=== PATIENT | male | born 1950 | race Caucasian/White ===

== ENCOUNTER 2020-11-21 12:51 | Inpatient (IN) ==
[2020-11-21] MEDS ORDERED: Furosemide 40 MG/4 ML VIAL IVP ONE (13:12)
[2020-11-21 13:37] LABS: Basophils % 0.3 %; Eosinophils # 0.1 K/mcL (0.0-0.6); Eosinophils % 1.2 %; Hematocrit 31.7 % (37.5-50.1); Hemoglobin 9.9 g/dL (12.9-16.9); Immature Granulocytes % 0.4 % (0-4); Mean Corpuscular HGB Conc 31.2 g/dL (31.6-35.5); Mean Corpuscular Hemoglobin 29.5 pg (28.0-33.3); Mean Corpuscular Volume 94.3 fL (83.0-100.0); Monocytes # 0.6 K/mcL (0.0-1.3); Monocytes % 6.6 %; Neutrophils # 7.8 K/mcL (1.6-8.9); Platelet Count 162 K/mcL (140-400); Red Blood Count 3.36 M/mcL (4.19-5.50); Red Cell Distribution Width 17.9 % (11.5-14.5); Segmented Neutrophils % 81.5 %; White Blood Count 9.5 K/mcL (4.3-11.1)
[2020-11-21 13:42] LABS: INR 1.3; Prothrombin Time 14.9 Seconds (9.4-12.1)
[2020-11-21 13:45] LABS: Activated Partial Thrombo Time 31.3 Seconds (26.0-36.0)
[2020-11-21 13:55] LABS: Alanine Aminotransferase 14 Units/L (7-52); Albumin 3.7 g/dL (3.5-5.7); Albumin/Globulin Ratio 1.4 (1.1-2.2); Alkaline Phosphatase 59 Units/L (34-104); Aspartate Amino Transferase 25 Units/L (13-39); BUN/Creatinine Ratio 23 (6-26); Bilirubin,Direct 0.1 mg/dL (0.0-0.2); Bilirubin,Indirect 0.4 mg/dL (0.0-1.0); Bilirubin,Total 0.5 mg/dL (0.3-1.0); Blood Urea Nitrogen 26 mg/dL (8-23); Calcium 8.7 mg/dL (8.6-10.3); Carbon Dioxide 23 mEq/L (23-29); Chloride 101 mEq/L (98-107); Globulin 2.6 g/dL (2.4-3.5); Glucose 165 mg/dL (70-105); Osmolality,Calculated 290 (280-300); Potassium 4.6 mEq/L (3.5-5.1); Sodium 136 mEq/L (136-145); Total Protein 6.3 g/dL (6.4-8.9); eGFR For African Americans > 60 (> 60); eGFR For Non-African Americans > 60 (> 60)
[2020-11-21] MEDS ORDERED: Clindamycin 600 MG/50 ML 600 MG/50 ML IV.SOLN IVPB STA (15:07)
[2020-11-21] MEDS ORDERED: Naloxone 0.4 MG/ML INJ IVP PRN (15:22)
[2020-11-21] MEDS ORDERED: Ondansetron 4 MG/2 ML VIAL IVP PRN (15:22)
[2020-11-21] MEDS ORDERED: D5% in Water 1,000 ML IVC PRN (15:22)
[2020-11-21] MEDS ORDERED: Dextrose Gel 15 GM/37.5 ML TUBE PO PRN ×2 (15:22)
[2020-11-21] MEDS ORDERED: Acetaminophen 325 MG TABLET PO PRN (15:22)
[2020-11-21] MEDS ORDERED: *HR* Dextrose 50 % in Water (Vial) 50 ML VIAL IVP PRN (15:22)
[2020-11-21] MEDS: Insulin LISPRO 300 UNITS/3 ML VIAL SUBQ SCH ×2 (16:40→20:53)
[2020-11-21] MEDS: ELTROMBOPAG OLAMINE 50 MG PO SCH (20:01)
[2020-11-21] MEDS: Gabapentin 300 MG CAPSULE PO SCH (20:49)
[2020-11-21] MEDS: valACYclovir 500 MG TABLET PO SCH (20:49)
[2020-11-21] MEDS: Furosemide 40 MG/4 ML VIAL IVP SCH (20:53)
[2020-11-21] MEDS: *HR* HYDROcodone/Acet 5/325 mg TABLET PO PRN (20:55)
[2020-11-21] MEDS: Melatonin 3 MG TABLET PO PRN (23:40)
[2020-11-21] MEDS: Capsaicin 0.025% 60 GM TUBE TP PRN (23:42)
[2020-11-21] MEDS: Clindamycin 600 MG/50 ML 600 MG/50 ML IV.SOLN IVPB SCH (23:46)
[2020-11-22] MEDS: *HR* HYDROcodone/Acet 5/325 mg TABLET PO PRN ×2 (04:10→10:17)
[2020-11-22 07:15] LABS: Hematocrit 31.3 % (37.5-50.1); Hemoglobin 9.6 g/dL (12.9-16.9); Mean Corpuscular HGB Conc 30.7 g/dL (31.6-35.5); Mean Corpuscular Hemoglobin 29.3 pg (28.0-33.3); Mean Corpuscular Volume 95.4 fL (83.0-100.0); Mean Platelet Volume 10.3 fL (9.4-12.4); Platelet Count 149 K/mcL (140-400); Red Blood Count 3.28 M/mcL (4.19-5.50); Red Cell Distribution Width 17.9 % (11.5-14.5); White Blood Count 7.9 K/mcL (4.3-11.1)
[2020-11-22 07:49] LABS: BUN/Creatinine Ratio 20 (6-26); Blood Urea Nitrogen 28 mg/dL (8-23); Calcium 8.6 mg/dL (8.6-10.3); Carbon Dioxide 29 mEq/L (23-29); Chloride 101 mEq/L (98-107); Glucose 142 mg/dL (70-105); Magnesium 1.6 mg/dL (1.6-2.6); Osmolality,Calculated 296 (280-300); Potassium 3.7 mEq/L (3.5-5.1); Sodium 139 mEq/L (136-145); eGFR For African Americans > 60 (> 60); eGFR For Non-African Americans 50 (> 60)
[2020-11-22] MEDS: Insulin LISPRO 300 UNITS/3 ML VIAL SUBQ SCH ×4 (08:06→20:23)
[2020-11-22] MEDS: Metoprolol XL (24 HR) Succ 25 MG TAB.ER.24H PO SCH (10:16)
[2020-11-22] MEDS: valACYclovir 500 MG TABLET PO SCH ×2 (10:16→20:37)
[2020-11-22] MEDS: Furosemide 40 MG/4 ML VIAL IVP SCH (10:17)
[2020-11-22] MEDS: Aspirin Enteric Coated 81 MG Tablet PO SCH (10:17)
[2020-11-22] MEDS: Spironolactone 25 MG TABLET PO SCH (10:17)
[2020-11-22] MEDS: Lactobacillus 1 EACH CAP.SPRINK PO SCH (10:17)
[2020-11-22] MEDS: Clindamycin 600 MG/50 ML 600 MG/50 ML IV.SOLN IVPB SCH ×3 (10:17→23:06)
[2020-11-22] MEDS: allopurinoL 300 MG TABLET PO SCH (10:17)
[2020-11-22] MEDS: VENETOCLAX 100 MG PO SCH (10:18)
[2020-11-22] MEDS: *HR* OxyCODONE Immed Rel 5 MG TABLET PO PRN (12:44)
[2020-11-22] MEDS: Furosemide 20 MG TABLET PO SCH (17:16)
[2020-11-22] MEDS: ELTROMBOPAG OLAMINE 50 MG PO SCH (17:20)
[2020-11-22] MEDS: Gabapentin 300 MG CAPSULE PO SCH (20:37)
[2020-11-22] MEDS: Capsaicin 0.025% 60 GM TUBE TP PRN (20:38)
[2020-11-22] MEDS: Melatonin 3 MG TABLET PO PRN (20:51)
[2020-11-23] MEDS: *HR* Enoxaparin 40 MG/0.4 ML SYRINGE SQ SCH (05:35)
[2020-11-23 07:09] LABS: Basophils % 0.2 %; Eosinophils # 0.1 K/mcL (0.0-0.6); Eosinophils % 1.3 %; Hematocrit 30.7 % (37.5-50.1); Hemoglobin 9.6 g/dL (12.9-16.9); Immature Granulocytes % 0.4 % (0-4); Lymphocytes # 0.9 K/mcL (0.6-4.6); Lymphocytes % 10.2 %; Mean Corpuscular HGB Conc 31.3 g/dL (31.6-35.5); Mean Corpuscular Hemoglobin 29.2 pg (28.0-33.3); Mean Corpuscular Volume 93.3 fL (83.0-100.0); Mean Platelet Volume 10.2 fL (9.4-12.4); Monocytes # 0.6 K/mcL (0.0-1.3); Monocytes % 6.8 %; Neutrophils # 7.2 K/mcL (1.6-8.9); Platelet Count 147 K/mcL (140-400); Red Blood Count 3.29 M/mcL (4.19-5.50); Red Cell Distribution Width 17.6 % (11.5-14.5); Segmented Neutrophils % 81.1 %; White Blood Count 8.9 K/mcL (4.3-11.1)
[2020-11-23 07:24] LABS: BUN/Creatinine Ratio 22 (6-26); Blood Urea Nitrogen 28 mg/dL (8-23); Calcium 8.6 mg/dL (8.6-10.3); Carbon Dioxide 28 mEq/L (23-29); Chloride 99 mEq/L (98-107); Glucose 151 mg/dL (70-105); Osmolality,Calculated 290 (280-300); Potassium 3.2 mEq/L (3.5-5.1); Sodium 136 mEq/L (136-145); eGFR For African Americans > 60 (> 60); eGFR For Non-African Americans 56 (> 60)
[2020-11-23] MEDS: valACYclovir 500 MG TABLET PO SCH ×2 (07:44→20:24)
[2020-11-23] MEDS: Aspirin Enteric Coated 81 MG Tablet PO SCH (07:44)
[2020-11-23] MEDS: allopurinoL 300 MG TABLET PO SCH (07:44)
[2020-11-23] MEDS: Clindamycin 600 MG/50 ML 600 MG/50 ML IV.SOLN IVPB SCH ×2 (07:44→16:06)
[2020-11-23] MEDS: Lactobacillus 1 EACH CAP.SPRINK PO SCH (07:45)
[2020-11-23] MEDS: Metoprolol XL (24 HR) Succ 25 MG TAB.ER.24H PO SCH (07:45)
[2020-11-23] MEDS: Spironolactone 25 MG TABLET PO SCH (07:45)
[2020-11-23] MEDS: Furosemide 20 MG TABLET PO SCH ×2 (07:45→16:08)
[2020-11-23] MEDS: Insulin LISPRO 300 UNITS/3 ML VIAL SUBQ SCH ×4 (07:47→20:25)
[2020-11-23] MEDS: VENETOCLAX 100 MG PO SCH (07:55)
[2020-11-23] MEDS: *HR* OxyCODONE Immed Rel 5 MG TABLET PO PRN ×2 (13:41→20:23)
[2020-11-23] MEDS: Capsaicin 0.025% 60 GM TUBE TP PRN (13:41)
[2020-11-23] MEDS: ELTROMBOPAG OLAMINE 50 MG PO SCH (16:56)
[2020-11-23] MEDS: Melatonin 3 MG TABLET PO PRN (20:23)
[2020-11-23] MEDS: Gabapentin 300 MG CAPSULE PO SCH (20:23)
[2020-11-23] MEDS: Nystatin POWDER 30 GM BOTTLE TP SCH (20:24)
[2020-11-24] MEDS: Clindamycin 600 MG/50 ML 600 MG/50 ML IV.SOLN IVPB SCH ×3 (01:25→17:05)
[2020-11-24] MEDS: *HR* Enoxaparin 40 MG/0.4 ML SYRINGE SQ SCH (06:28)
[2020-11-24 09:25] LABS: Basophils % 0.3 %; Eosinophils # 0.1 K/mcL (0.0-0.6); Eosinophils % 1.3 %; Hematocrit 30.5 % (37.5-50.1); Hemoglobin 9.6 g/dL (12.9-16.9); Immature Granulocytes % 0.5 % (0-4); Lymphocytes # 0.8 K/mcL (0.6-4.6); Mean Corpuscular HGB Conc 31.5 g/dL (31.6-35.5); Mean Corpuscular Hemoglobin 29.6 pg (28.0-33.3); Mean Corpuscular Volume 94.1 fL (83.0-100.0); Monocytes # 0.6 K/mcL (0.0-1.3); Monocytes % 6.6 %; Neutrophils # 7.1 K/mcL (1.6-8.9); Platelet Count 149 K/mcL (140-400); Red Blood Count 3.24 M/mcL (4.19-5.50); Red Cell Distribution Width 17.7 % (11.5-14.5); Segmented Neutrophils % 82.3 %; White Blood Count 8.6 K/mcL (4.3-11.1)
[2020-11-24 09:45] LABS: BUN/Creatinine Ratio 21 (6-26); Blood Urea Nitrogen 23 mg/dL (8-23); Calcium 8.3 mg/dL (8.6-10.3); Carbon Dioxide 26 mEq/L (23-29); Chloride 99 mEq/L (98-107); Glucose 140 mg/dL (70-105); Osmolality,Calculated 286 (280-300); Potassium 3.5 mEq/L (3.5-5.1); Sodium 135 mEq/L (136-145); eGFR For African Americans > 60 (> 60); eGFR For Non-African Americans > 60 (> 60)
[2020-11-24] MEDS: Insulin LISPRO 300 UNITS/3 ML VIAL SUBQ SCH ×4 (09:57→22:05)
[2020-11-24] MEDS: Capsaicin 0.025% 60 GM TUBE TP PRN ×2 (09:58→22:06)
[2020-11-24] MEDS: valACYclovir 500 MG TABLET PO SCH ×2 (09:59→22:04)
[2020-11-24] MEDS: Lactobacillus 1 EACH CAP.SPRINK PO SCH (09:59)
[2020-11-24] MEDS: Furosemide 20 MG TABLET PO SCH (09:59)
[2020-11-24] MEDS: allopurinoL 300 MG TABLET PO SCH (09:59)
[2020-11-24] MEDS: Aspirin Enteric Coated 81 MG Tablet PO SCH (09:59)
[2020-11-24] MEDS: Metoprolol XL (24 HR) Succ 25 MG TAB.ER.24H PO SCH (09:59)
[2020-11-24] MEDS: Nystatin POWDER 30 GM BOTTLE TP SCH ×3 (10:00→22:05)
[2020-11-24] MEDS: Spironolactone 25 MG TABLET PO SCH (10:00)
[2020-11-24] MEDS: VENETOCLAX 100 MG PO SCH (10:00)
[2020-11-24] MEDS: ELTROMBOPAG OLAMINE 50 MG PO SCH (10:01)
[2020-11-24] MEDS: *HR* OxyCODONE Immed Rel 5 MG TABLET PO PRN ×2 (10:14→18:22)
[2020-11-24] MEDS: Furosemide 40 MG/4 ML VIAL IVP SCH ×2 (17:04→22:04)
[2020-11-24] MEDS: Gabapentin 300 MG CAPSULE PO SCH (22:04)
[2020-11-24] MEDS: Melatonin 3 MG TABLET PO PRN (22:04)
[2020-11-25] MEDS: Clindamycin 600 MG/50 ML 600 MG/50 ML IV.SOLN IVPB SCH ×3 (00:13→15:13)
[2020-11-25] MEDS: *HR* Enoxaparin 40 MG/0.4 ML SYRINGE SQ SCH (06:37)
[2020-11-25] MEDS: *HR* OxyCODONE Immed Rel 5 MG TABLET PO PRN ×3 (06:37→22:50)
[2020-11-25 08:51] LABS: Basophils % 0.2 %; Eosinophils # 0.1 K/mcL (0.0-0.6); Eosinophils % 1.3 %; Hematocrit 31.3 % (37.5-50.1); Hemoglobin 9.7 g/dL (12.9-16.9); Immature Granulocytes % 0.6 % (0-4); Lymphocytes # 0.9 K/mcL (0.6-4.6); Lymphocytes % 10.9 %; Mean Corpuscular Hemoglobin 29.3 pg (28.0-33.3); Mean Corpuscular Volume 94.6 fL (83.0-100.0); Mean Platelet Volume 10.5 fL (9.4-12.4); Monocytes # 0.6 K/mcL (0.0-1.3); Monocytes % 6.8 %; Neutrophils # 6.6 K/mcL (1.6-8.9); Platelet Count 149 K/mcL (140-400); Red Blood Count 3.31 M/mcL (4.19-5.50); Red Cell Distribution Width 17.5 % (11.5-14.5); Segmented Neutrophils % 80.2 %; White Blood Count 8.2 K/mcL (4.3-11.1)
[2020-11-25 09:18] LABS: BUN/Creatinine Ratio 20 (6-26); Blood Urea Nitrogen 23 mg/dL (8-23); Calcium 8.3 mg/dL (8.6-10.3); Carbon Dioxide 28 mEq/L (23-29); Chloride 99 mEq/L (98-107); Glucose 141 mg/dL (70-105); Osmolality,Calculated 290 (280-300); Potassium 3.5 mEq/L (3.5-5.1); Sodium 137 mEq/L (136-145); eGFR For African Americans > 60 (> 60); eGFR For Non-African Americans > 60 (> 60)
[2020-11-25] MEDS: Insulin LISPRO 300 UNITS/3 ML VIAL SUBQ SCH ×4 (10:00→21:26)
[2020-11-25] MEDS: allopurinoL 300 MG TABLET PO SCH (10:00)
[2020-11-25] MEDS: Spironolactone 25 MG TABLET PO SCH (10:02)
[2020-11-25] MEDS: valACYclovir 500 MG TABLET PO SCH ×2 (10:02→21:27)
[2020-11-25] MEDS: Metoprolol XL (24 HR) Succ 25 MG TAB.ER.24H PO SCH (10:03)
[2020-11-25] MEDS: Aspirin Enteric Coated 81 MG Tablet PO SCH (10:03)
[2020-11-25] MEDS: Lactobacillus 1 EACH CAP.SPRINK PO SCH (10:04)
[2020-11-25] MEDS: Furosemide 40 MG/4 ML VIAL IVP SCH ×3 (10:05→21:28)
[2020-11-25] MEDS: Nystatin POWDER 30 GM BOTTLE TP SCH ×3 (10:06→21:28)
[2020-11-25] MEDS: VENETOCLAX 100 MG PO SCH (12:44)
[2020-11-25] MEDS: ELTROMBOPAG OLAMINE 50 MG PO SCH (16:47)
[2020-11-25] MEDS: Melatonin 3 MG TABLET PO PRN (21:27)
[2020-11-25] MEDS: Gabapentin 300 MG CAPSULE PO SCH (21:27)
[2020-11-25] MEDS: Furosemide 40 MG TABLET PO SCH (22:50)
[2020-11-26 04:20] VITALS: RESP 20
[2020-11-26] MEDS: *HR* Enoxaparin 40 MG/0.4 ML SYRINGE SQ SCH (06:27)
[2020-11-26] MEDS: *HR* OxyCODONE Immed Rel 5 MG TABLET PO PRN (06:35)
[2020-11-26 06:40] LABS: Basophils % 0.5 %; Eosinophils # 0.1 K/mcL (0.0-0.6); Eosinophils % 1.8 %; Hematocrit 32.8 % (37.5-50.1); Hemoglobin 9.6 g/dL (12.9-16.9); Immature Granulocytes % 0.7 % (0-4); Lymphocytes # 0.8 K/mcL (0.6-4.6); Lymphocytes % 11.4 %; Mean Corpuscular HGB Conc 29.3 g/dL (31.6-35.5); Mean Corpuscular Hemoglobin 29.8 pg (28.0-33.3); Mean Corpuscular Volume 101.9 fL (83.0-100.0); Mean Platelet Volume 11.1 fL (9.4-12.4); Monocytes # 0.5 K/mcL (0.0-1.3); Monocytes % 7.4 %; Neutrophils # 5.7 K/mcL (1.6-8.9); Platelet Count 141 K/mcL (140-400); Red Blood Count 3.22 M/mcL (4.19-5.50); Red Cell Distribution Width 17.9 % (11.5-14.5); Segmented Neutrophils % 78.2 %; White Blood Count 7.3 K/mcL (4.3-11.1)
[2020-11-26 06:50] VITALS: BP 112/69; PULSE 86; TEMP 98.5; O2SAT 96
[2020-11-26 07:30] LABS: BUN/Creatinine Ratio 19 (6-26); Blood Urea Nitrogen 24 mg/dL (8-23); Calcium 8.2 mg/dL (8.6-10.3); Carbon Dioxide 23 mEq/L (23-29); Chloride 100 mEq/L (98-107); Glucose 143 mg/dL (70-105); Osmolality,Calculated 287 (280-300); Potassium 3.5 mEq/L (3.5-5.1); Sodium 135 mEq/L (136-145); eGFR For African Americans > 60 (> 60); eGFR For Non-African Americans 57 (> 60)
[2020-11-26] MEDS: Spironolactone 25 MG TABLET PO SCH (08:24)
[2020-11-26] MEDS: Metoprolol XL (24 HR) Succ 25 MG TAB.ER.24H PO SCH (08:24)
[2020-11-26] MEDS: Lactobacillus 1 EACH CAP.SPRINK PO SCH (08:25)
[2020-11-26] MEDS: Furosemide 40 MG TABLET PO SCH (08:25)
[2020-11-26] MEDS: valACYclovir 500 MG TABLET PO SCH (08:25)
[2020-11-26] MEDS: Aspirin Enteric Coated 81 MG Tablet PO SCH (08:25)
[2020-11-26] MEDS: allopurinoL 300 MG TABLET PO SCH (08:25)
[2020-11-26] MEDS: Insulin LISPRO 300 UNITS/3 ML VIAL SUBQ SCH (08:26)
[2020-11-26] MEDS: Nystatin POWDER 30 GM BOTTLE TP SCH (08:27)
[2020-11-26] MEDS: VENETOCLAX 100 MG PO SCH (08:27)
== END 2020-11-26 12:13 | disposition home health service (06) | DRG 603 ==
LOC: EMEROOPIK 12:51 → INPPIK 12:51
PROVIDERS: ADMIT Family Medicine; ATTEND Family Medicine

== ENCOUNTER 2020-11-30 13:00 | Observation (INO) ==
[2020-11-30 13:58] LABS: Basophils % 0.4 %; Eosinophils # 0.1 K/mcL (0.0-0.6); Hematocrit 31.1 % (37.5-50.1); Hemoglobin 9.3 g/dL (12.9-16.9); Immature Granulocytes % 0.3 % (0-4); Lymphocytes # 0.7 K/mcL (0.6-4.6); Lymphocytes % 9.7 %; Mean Corpuscular HGB Conc 29.9 g/dL (31.6-35.5); Mean Corpuscular Hemoglobin 28.5 pg (28.0-33.3); Mean Corpuscular Volume 95.4 fL (83.0-100.0); Mean Platelet Volume 10.2 fL (9.4-12.4); Monocytes # 0.5 K/mcL (0.0-1.3); Monocytes % 6.7 %; Neutrophils # 5.8 K/mcL (1.6-8.9); Platelet Count 173 K/mcL (140-400); Red Blood Count 3.26 M/mcL (4.19-5.50); Red Cell Distribution Width 17.5 % (11.5-14.5); Segmented Neutrophils % 80.9 %; White Blood Count 7.1 K/mcL (4.3-11.1)
[2020-11-30 14:02] LABS: INR 1.4; Prothrombin Time 15.5 Seconds (9.4-12.1)
[2020-11-30 14:13] LABS: Alanine Aminotransferase 12 Units/L (7-52); Albumin 3.5 g/dL (3.5-5.7); Albumin/Globulin Ratio 1.5 (1.1-2.2); Alkaline Phosphatase 67 Units/L (34-104); Aspartate Amino Transferase 10 Units/L (13-39); BUN/Creatinine Ratio 22 (6-26); Bilirubin,Total 0.5 mg/dL (0.3-1.0); Blood Urea Nitrogen 25 mg/dL (8-23); Calcium 8.7 mg/dL (8.6-10.3); Carbon Dioxide 26 mEq/L (23-29); Chloride 101 mEq/L (98-107); Globulin 2.3 g/dL (2.4-3.5); Glucose 124 mg/dL (70-105); Osmolality,Calculated 290 (280-300); Potassium 4.3 mEq/L (3.5-5.1); Sodium 137 mEq/L (136-145); Total Protein 5.8 g/dL (6.4-8.9); eGFR For African Americans > 60 (> 60); eGFR For Non-African Americans > 60 (> 60)
[2020-11-30] MEDS ORDERED: Furosemide 40 MG/4 ML VIAL IVP ONE (14:59)
[2020-11-30] MEDS ORDERED: MOM Conc 10 ML UD.LIQ PO PRN (15:03)
[2020-11-30] MEDS ORDERED: Ondansetron 4 MG/2 ML VIAL IVP PRN (15:03)
[2020-11-30] MEDS ORDERED: Naloxone 0.4 MG/ML INJ IVP PRN (15:03)
[2020-11-30] MEDS ORDERED: *HR* Dextrose 50 % in Water (Vial) 50 ML VIAL IVP PRN (15:08)
[2020-11-30] MEDS ORDERED: Dextrose Gel 15 GM/37.5 ML TUBE PO PRN ×2 (15:08)
[2020-11-30] MEDS ORDERED: D5% in Water 1,000 ML IVC PRN (15:08)
[2020-11-30] MEDS ORDERED: Perflutren Lipid Microsphere 1.3 ML in 0.9 % Sodium Chloride 8.7 ML IVP PRN (15:09)
[2020-11-30] MEDS ORDERED: Famotidine 20 MG TABLET PO PRN (15:28)
[2020-11-30] MEDS: Gabapentin 300 MG CAPSULE PO SCH (20:26)
[2020-11-30] MEDS: Furosemide 40 MG/4 ML VIAL IVP SCH (20:26)
[2020-11-30] MEDS: *HR* Metformin 500 MG TABLET PO SCH (20:26)
[2020-11-30] MEDS: *HR* OxyCODONE Immed Rel 5 MG TABLET PO PRN (20:26)
[2020-11-30] MEDS: valACYclovir 500 MG TABLET PO SCH (20:26)
[2020-11-30] MEDS: Insulin LISPRO 300 UNITS/3 ML VIAL SUBQ SCH ×2 (20:27→20:33)
[2020-11-30] MEDS: Nystatin POWDER 30 GM BOTTLE TP SCH (20:30)
[2020-11-30] MEDS: Melatonin 3 MG TABLET PO SCH (20:30)
[2020-11-30] MEDS: Piperacillin/Tazobactam 3.375 GM in 0.9 % Sodium Chloride Mini Bag 100 ML IVPB SCH (20:41)
[2020-12-01] MEDS: Piperacillin/Tazobactam 3.375 GM in 0.9 % Sodium Chloride Mini Bag 100 ML IVPB SCH ×4 (00:33→23:06)
[2020-12-01 04:55] LABS: Bilirubin,Urine Negative (Negative); Blood,Urine Small (Negative); Clarity,Urine Slightly Cloudy (Clear); Color,Urine Yellow (Yellow); Glucose,Urine (UA) Normal (Normal); Ketones,Urine Negative (Negative); Leukocyte Esterase,Urine Large (Negative); Nitrite,Urine Negative (Negative); PH,Urine 5.5 pH Units (5.0-8.0); Protein,Urine Negative (Neg-Trace); Urobilinogen,Urine Normal (Normal)
[2020-12-01 05:04] LABS: Bacteria,Urine Few per hpf (None-Few); Squamous Epithelial Cell,Urine Few per hpf (None-Few); WBC,Urine TNTC per hpf (0-3)
[2020-12-01] MEDS: *HR* Enoxaparin 40 MG/0.4 ML SYRINGE SQ SCH (06:04)
[2020-12-01 07:23] LABS: Basophils % 0.3 %; Eosinophils # 0.2 K/mcL (0.0-0.6); Eosinophils % 2.5 %; Hematocrit 32.9 % (37.5-50.1); Hemoglobin 9.9 g/dL (12.9-16.9); Immature Granulocytes % 0.6 % (0-4); Lymphocytes # 0.9 K/mcL (0.6-4.6); Lymphocytes % 13.2 %; Mean Corpuscular HGB Conc 30.1 g/dL (31.6-35.5); Mean Corpuscular Volume 96.5 fL (83.0-100.0); Mean Platelet Volume 10.3 fL (9.4-12.4); Monocytes # 0.6 K/mcL (0.0-1.3); Monocytes % 9.1 %; Platelet Count 183 K/mcL (140-400); Red Blood Count 3.41 M/mcL (4.19-5.50); Red Cell Distribution Width 17.6 % (11.5-14.5); Segmented Neutrophils % 74.3 %; White Blood Count 6.7 K/mcL (4.3-11.1)
[2020-12-01] MEDS: Insulin LISPRO 300 UNITS/3 ML VIAL SUBQ SCH ×4 (07:36→20:52)
[2020-12-01 07:51] LABS: BUN/Creatinine Ratio 20 (6-26); Blood Urea Nitrogen 25 mg/dL (8-23); Calcium 8.5 mg/dL (8.6-10.3); Carbon Dioxide 28 mEq/L (23-29); Chloride 100 mEq/L (98-107); Glucose 110 mg/dL (70-105); Osmolality,Calculated 293 (280-300); Potassium 3.6 mEq/L (3.5-5.1); Sodium 139 mEq/L (136-145); eGFR For African Americans > 60 (> 60); eGFR For Non-African Americans 57 (> 60)
[2020-12-01] MEDS: polyethylene glycoL 3350 17 GM POWD.PACK PO SCH (08:27)
[2020-12-01] MEDS: valACYclovir 500 MG TABLET PO SCH ×2 (08:28→20:34)
[2020-12-01] MEDS: Aspirin Enteric Coated 81 MG Tablet PO SCH (08:28)
[2020-12-01] MEDS: allopurinoL 300 MG TABLET PO SCH (08:29)
[2020-12-01] MEDS: Magnesium Oxide 400 MG TABLET PO SCH (08:29)
[2020-12-01] MEDS: Multivit/Ca/Min/Fe/FA 1 TAB TABLET PO SCH (08:29)
[2020-12-01] MEDS: *HR* Metformin 500 MG TABLET PO SCH ×2 (08:29→16:35)
[2020-12-01] MEDS: Gabapentin 300 MG CAPSULE PO SCH ×3 (08:29→20:34)
[2020-12-01] MEDS: Metoprolol XL (24 HR) Succ 25 MG TAB.ER.24H PO SCH (08:29)
[2020-12-01] MEDS: Spironolactone 25 MG TABLET PO SCH (08:29)
[2020-12-01] MEDS: Furosemide 40 MG/4 ML VIAL IVP SCH ×3 (08:30→20:32)
[2020-12-01] MEDS: Nystatin POWDER 30 GM BOTTLE TP SCH ×3 (08:32→20:34)
[2020-12-01] MEDS: *HR* OxyCODONE Immed Rel 5 MG TABLET PO PRN ×3 (09:01→23:03)
[2020-12-01] MEDS: Melatonin 3 MG TABLET PO SCH (20:33)
[2020-12-02] MEDS: *HR* Enoxaparin 40 MG/0.4 ML SYRINGE SQ SCH (05:21)
[2020-12-02 08:03] LABS: Basophils % 0.3 %; Eosinophils # 0.2 K/mcL (0.0-0.6); Eosinophils % 2.4 %; Hematocrit 31.7 % (37.5-50.1); Hemoglobin 9.6 g/dL (12.9-16.9); Immature Granulocytes % 0.4 % (0-4); Lymphocytes # 0.7 K/mcL (0.6-4.6); Lymphocytes % 10.4 %; Mean Corpuscular HGB Conc 30.3 g/dL (31.6-35.5); Mean Corpuscular Hemoglobin 28.8 pg (28.0-33.3); Mean Corpuscular Volume 95.2 fL (83.0-100.0); Mean Platelet Volume 10.8 fL (9.4-12.4); Monocytes # 0.6 K/mcL (0.0-1.3); Monocytes % 8.4 %; Neutrophils # 5.6 K/mcL (1.6-8.9); Platelet Count 194 K/mcL (140-400); Red Blood Count 3.33 M/mcL (4.19-5.50); Red Cell Distribution Width 17.4 % (11.5-14.5); Segmented Neutrophils % 78.1 %; White Blood Count 7.1 K/mcL (4.3-11.1)
[2020-12-02 08:16] LABS: BUN/Creatinine Ratio 20 (6-26); Blood Urea Nitrogen 23 mg/dL (8-23); Calcium 8.5 mg/dL (8.6-10.3); Carbon Dioxide 28 mEq/L (23-29); Chloride 99 mEq/L (98-107); Glucose 128 mg/dL (70-105); Osmolality,Calculated 289 (280-300); Potassium 3.7 mEq/L (3.5-5.1); Sodium 137 mEq/L (136-145); eGFR For African Americans > 60 (> 60); eGFR For Non-African Americans > 60 (> 60)
[2020-12-02] MEDS: Insulin LISPRO 300 UNITS/3 ML VIAL SUBQ SCH ×4 (08:37→20:35)
[2020-12-02] MEDS: Acetaminophen 325 MG TABLET PO PRN ×2 (08:39→17:12)
[2020-12-02] MEDS: Gabapentin 300 MG CAPSULE PO SCH ×3 (08:39→20:35)
[2020-12-02] MEDS: Spironolactone 25 MG TABLET PO SCH (08:40)
[2020-12-02] MEDS: *HR* Metformin 500 MG TABLET PO SCH ×2 (08:40→17:10)
[2020-12-02] MEDS: Aspirin Enteric Coated 81 MG Tablet PO SCH (08:40)
[2020-12-02] MEDS: Magnesium Oxide 400 MG TABLET PO SCH (08:40)
[2020-12-02] MEDS: allopurinoL 300 MG TABLET PO SCH (08:41)
[2020-12-02] MEDS: Metoprolol XL (24 HR) Succ 25 MG TAB.ER.24H PO SCH (08:41)
[2020-12-02] MEDS: Multivit/Ca/Min/Fe/FA 1 TAB TABLET PO SCH (08:41)
[2020-12-02] MEDS: valACYclovir 500 MG TABLET PO SCH ×2 (08:42→20:35)
[2020-12-02] MEDS: polyethylene glycoL 3350 17 GM POWD.PACK PO SCH (08:43)
[2020-12-02] MEDS: Furosemide 40 MG/4 ML VIAL IVP SCH ×3 (08:44→20:35)
[2020-12-02] MEDS: Piperacillin/Tazobactam 3.375 GM in 0.9 % Sodium Chloride Mini Bag 100 ML IVPB SCH (08:54)
[2020-12-02] MEDS: Nystatin POWDER 30 GM BOTTLE TP SCH ×3 (08:55→20:36)
[2020-12-02 13:29] LABS: Estimated Average Glucose 146 mg/dl; Hemoglobin A1C 6.7 %
[2020-12-02] MEDS: *HR* OxyCODONE Immed Rel 5 MG TABLET PO PRN ×2 (13:57→20:35)
[2020-12-02] MEDS: Melatonin 3 MG TABLET PO SCH (20:36)
[2020-12-02] MEDS ORDERED: Piperacillin/Tazobactam 3.375 GM in 0.9 % Sodium Chloride Mini Bag 100 ML IVPB SCH (22:00)
[2020-12-02 22:37] VITALS: RESP 18; TEMP 98.2; O2SAT 91
[2020-12-02 23:01] VITALS: BP 119/62; PULSE 101
[2020-12-03] MEDS ORDERED: Vancomycin 1,500 MG/265 ML IV.SOLN IVPB SCH (20:00)
== END 2020-12-03 02:40 | disposition short-term general hospital (02) ==
LOC: EMEROOPIK 13:00 → INPPIK 13:00
PROVIDERS: ADMIT Family Medicine; ATTEND Family Medicine

== ENCOUNTER 2021-04-19 14:21 | Inpatient (IN) ==
[2021-04-19] MEDS ORDERED: Piperacillin/Tazobactam 4.5 GM in 0.9 % Sodium Chloride Mini Bag 100 ML IVPB ONE (14:52)
[2021-04-19] MEDS ORDERED: Isovue-370 500 ML BOTTLE IVP ONE (14:52)
[2021-04-19 15:23] LABS: Red Blood Count 3.46 M/mcL (4.19-5.50); White Blood Count 10.2 K/mcL (4.3-11.1)
[2021-04-19 15:24] LABS: Basophils % 0.4 %; Eosinophils # 0.1 K/mcL (0.0-0.6); Eosinophils % 1.1 %; Hematocrit 33.6 % (37.5-50.1); Hemoglobin 10.1 g/dL (12.9-16.9); Immature Granulocytes % 0.4 % (0-4); Lymphocytes # 0.9 K/mcL (0.6-4.6); Lymphocytes % 9.2 %; Mean Corpuscular HGB Conc 30.1 g/dL (31.6-35.5); Mean Corpuscular Hemoglobin 29.2 pg (28.0-33.3); Mean Corpuscular Volume 97.1 fL (83.0-100.0); Mean Platelet Volume 10.2 fL (9.4-12.4); Monocytes # 0.7 K/mcL (0.0-1.3); Monocytes % 6.6 %; Neutrophils # 8.4 K/mcL (1.6-8.9); Platelet Count 169 K/mcL (140-400); Red Cell Distribution Width 18.9 % (11.5-14.5); Segmented Neutrophils % 82.3 %
[2021-04-19 15:44] LABS: Calcium 8.2 mg/dL (8.6-10.3); Potassium 3.8 mEq/L (3.5-5.1)
[2021-04-19] MEDS ORDERED: 0.9 % Sodium Chloride 1,000 ML IVC ONE (19:38)
[2021-04-19] MEDS ORDERED: 0.9 % Sodium Chloride 1,000 ML IVC SCH ×2 (23:15→23:16)
[2021-04-19] MEDS ORDERED: Naloxone 0.4 MG/ML INJ IVP PRN (23:16)
[2021-04-19] MEDS ORDERED: Famotidine 20 MG TABLET PO PRN (23:16)
[2021-04-19] MEDS ORDERED: *HR* OxyCODONE ER (12 HR) 10 MG TABLET PO PRN (23:16)
[2021-04-19] MEDS ORDERED: Artificial Tears SOLN 15 ML BOTTLE BOTH EYES PRN (23:40)
[2021-04-19] MEDS: 0.9 % Sodium Chloride 1,000 ML IVC SCH (23:44)
[2021-04-19] MEDS ORDERED: D5% in Water 1,000 ML IVC PRN (23:45)
[2021-04-19] MEDS ORDERED: *HR* Dextrose 50 % in Water (Syg) 50 ML SYRINGE IVP PRN (23:45)
[2021-04-19] MEDS ORDERED: Dextrose Gel 15 GM/37.5 ML TUBE PO PRN ×2 (23:45)
[2021-04-20] MEDS: ACALABRUTINIB 100 MG PO SCH ×3 (00:56→22:32)
[2021-04-20] MEDS ORDERED: *HR* Heparin 5,000 UNIT/ML VIAL SQ SCH (06:00)
[2021-04-20] MEDS ORDERED: *HR* Enoxaparin 40 MG/0.4 ML SYRINGE SQ SCH (07:00)
[2021-04-20] MEDS: Insulin LISPRO 300 UNITS/3 ML VIAL SUBQ SCH ×4 (07:44→20:21)
[2021-04-20 08:42] LABS: Basophils % 0.4 %; Eosinophils # 0.2 K/mcL (0.0-0.6); Eosinophils % 1.5 %; Hematocrit 32.7 % (37.5-50.1); Immature Granulocytes % 0.4 % (0-4); Lymphocytes % 9.9 %; Mean Corpuscular HGB Conc 30.6 g/dL (31.6-35.5); Mean Corpuscular Hemoglobin 29.3 pg (28.0-33.3); Mean Corpuscular Volume 95.9 fL (83.0-100.0); Mean Platelet Volume 10.7 fL (9.4-12.4); Monocytes # 0.6 K/mcL (0.0-1.3); Monocytes % 6.2 %; Neutrophils # 8.1 K/mcL (1.6-8.9); Platelet Count 186 K/mcL (140-400); Red Blood Count 3.41 M/mcL (4.19-5.50); Red Cell Distribution Width 18.9 % (11.5-14.5); Segmented Neutrophils % 81.6 %; White Blood Count 9.9 K/mcL (4.3-11.1)
[2021-04-20 08:54] LABS: Albumin 3.1 g/dL (3.5-5.7); Albumin/Globulin Ratio 1.3 (1.1-2.2); Bilirubin,Total 0.5 mg/dL (0.3-1.0); Calcium 7.7 mg/dL (8.6-10.3); Globulin 2.4 g/dL (2.4-3.5); Magnesium 1.2 mg/dL (1.6-2.6); Phosphorous 4.3 mg/dL (2.7-4.5); Potassium 3.3 mEq/L (3.5-5.1); Total Protein 5.5 g/dL (6.4-8.9)
[2021-04-20] MEDS ORDERED: Vancomycin 1,250 MG/262.5 ML IV.SOLN IVPB SCH (09:00)
[2021-04-20] MEDS: Aspirin 81 MG TAB.CHEW PO SCH (09:51)
[2021-04-20] MEDS: Gabapentin 300 MG CAPSULE PO SCH ×3 (09:51→20:20)
[2021-04-20] MEDS: Cyanocobalamin (B-12) 1,000 MCG TABLET PO SCH (09:51)
[2021-04-20] MEDS: Lactobacillus 1 EACH CAP.SPRINK PO SCH (09:51)
[2021-04-20] MEDS: Cholecalciferol (D-3) 1,000 UNIT (25MCG) TABLET PO SCH ×2 (09:51→20:21)
[2021-04-20] MEDS: Metoprolol XL (24 HR) Succ 25 MG TAB.ER.24H PO SCH (09:51)
[2021-04-20] MEDS: 0.9 % Sodium Chloride 1,000 ML IVC SCH (09:52)
[2021-04-20] MEDS ORDERED: Famotidine 20 MG TABLET PO PRN (10:34)
[2021-04-20] MEDS ORDERED: *HR* Heparin 5,000 UNIT/ML VIAL IVP ONE (11:29)
[2021-04-20] MEDS ORDERED: *HR* Heparin 5,000 UNIT/ML VIAL IVP PRN ×2 (11:29)
[2021-04-20] MEDS ORDERED: Heparin 25,000UNIT/250ML 1/2NS 25,000 UNIT/250 ML IV.SOLN IVC SCH (11:30)
[2021-04-20 12:00] LABS: Estimated Average Glucose 111 mg/dl; Hemoglobin A1C 5.5 %
[2021-04-20 12:35] LABS: Hematocrit 33.5 % (37.5-50.1); Hemoglobin 10.2 g/dL (12.9-16.9); Mean Corpuscular HGB Conc 30.4 g/dL (31.6-35.5); Mean Corpuscular Hemoglobin 29.1 pg (28.0-33.3); Mean Corpuscular Volume 95.4 fL (83.0-100.0); Mean Platelet Volume 10.6 fL (9.4-12.4); Platelet Count 177 K/mcL (140-400); Red Blood Count 3.51 M/mcL (4.19-5.50); Red Cell Distribution Width 18.9 % (11.5-14.5); White Blood Count 10.4 K/mcL (4.3-11.1)
[2021-04-20 12:45] LABS: Heparin anti-factor XA UFH < 0.04 IU/mL (0.30-0.70)
[2021-04-20 12:46] LABS: INR 1.5; Prothrombin Time 16.5 Seconds (9.4-12.1)
[2021-04-20] MEDS ORDERED: Dextrose Gel 15 GM/37.5 ML TUBE PO PRN ×2 (13:39)
[2021-04-20] MEDS ORDERED: *HR* Dextrose 50 % in Water (Syg) 50 ML SYRINGE IVP PRN (13:39)
[2021-04-20] MEDS ORDERED: D5% in Water 1,000 ML IVC PRN (13:39)
[2021-04-20] MEDS: allopurinoL 300 MG TABLET PO SCH (14:08)
[2021-04-20] MEDS: Fluconazole 100 MG TABLET PO SCH (14:32)
[2021-04-20] MEDS: *HR* OxyCODONE Immed Rel 5 MG TABLET PO PRN (14:37)
[2021-04-20] MEDS: Piperacillin/Tazobactam 3.375 GM in 0.9 % Sodium Chloride Mini Bag 100 ML IVPB SCH ×2 (16:31→23:01)
[2021-04-20] MEDS: Melatonin 3 MG TABLET PO SCH (17:59)
[2021-04-20] MEDS: valACYclovir 500 MG TABLET PO SCH (20:20)
[2021-04-20] MEDS: allopurinoL 100 MG TABLET PO SCH (20:20)
[2021-04-20] MEDS: Nystatin POWDER 30 GM BOTTLE TP SCH (20:21)
[2021-04-20] MEDS: *HR* Heparin 5,000 UNIT/ML VIAL SQ SCH (21:07)
[2021-04-21] MEDS: *HR* Heparin 5,000 UNIT/ML VIAL SQ SCH ×3 (05:59→23:53)
[2021-04-21 06:58] LABS: Basophils % 0.3 %; Eosinophils # 0.2 K/mcL (0.0-0.6); Eosinophils % 1.7 %; Hematocrit 31.2 % (37.5-50.1); Hemoglobin 9.5 g/dL (12.9-16.9); Immature Granulocytes % 0.3 % (0-4); Lymphocytes % 11.6 %; Mean Corpuscular HGB Conc 30.4 g/dL (31.6-35.5); Mean Corpuscular Hemoglobin 29.1 pg (28.0-33.3); Mean Corpuscular Volume 95.4 fL (83.0-100.0); Mean Platelet Volume 10.8 fL (9.4-12.4); Monocytes # 0.6 K/mcL (0.0-1.3); Monocytes % 6.6 %; Platelet Count 147 K/mcL (140-400); Red Blood Count 3.27 M/mcL (4.19-5.50); Red Cell Distribution Width 18.7 % (11.5-14.5); Segmented Neutrophils % 79.5 %; White Blood Count 8.8 K/mcL (4.3-11.1)
[2021-04-21 07:39] LABS: Calcium 8.1 mg/dL (8.6-10.3); Magnesium 1.6 mg/dL (1.6-2.6); Potassium 3.5 mEq/L (3.5-5.1)
[2021-04-21] MEDS ORDERED: Furosemide 20 MG/2 ML VIAL IVP ONE ×2 (08:57→15:32)
[2021-04-21] MEDS: Aspirin 81 MG TAB.CHEW PO SCH (09:09)
[2021-04-21] MEDS: *HR* OxyCODONE Immed Rel 5 MG TABLET PO PRN ×2 (09:10→18:09)
[2021-04-21] MEDS: allopurinoL 300 MG TABLET PO SCH (09:10)
[2021-04-21] MEDS: Fluconazole 100 MG TABLET PO SCH (09:11)
[2021-04-21] MEDS: Metoprolol XL (24 HR) Succ 25 MG TAB.ER.24H PO SCH (09:12)
[2021-04-21] MEDS: Lactobacillus 1 EACH CAP.SPRINK PO SCH (09:12)
[2021-04-21] MEDS: Cholecalciferol (D-3) 1,000 UNIT (25MCG) TABLET PO SCH ×2 (09:13→19:48)
[2021-04-21] MEDS: valACYclovir 500 MG TABLET PO SCH ×2 (09:13→19:47)
[2021-04-21] MEDS: Gabapentin 300 MG CAPSULE PO SCH ×3 (09:13→19:48)
[2021-04-21] MEDS: Insulin LISPRO 300 UNITS/3 ML VIAL SUBQ SCH ×4 (09:14→19:47)
[2021-04-21] MEDS: Cyanocobalamin (B-12) 1,000 MCG TABLET PO SCH (09:14)
[2021-04-21] MEDS: Nystatin POWDER 30 GM BOTTLE TP SCH ×2 (09:15→19:48)
[2021-04-21] MEDS: Piperacillin/Tazobactam 3.375 GM in 0.9 % Sodium Chloride Mini Bag 100 ML IVPB SCH ×3 (09:16→23:51)
[2021-04-21] MEDS: ACALABRUTINIB 100 MG PO SCH (09:16)
[2021-04-21] MEDS: Melatonin 3 MG TABLET PO SCH (18:09)
[2021-04-21] MEDS: allopurinoL 100 MG TABLET PO SCH (19:48)
[2021-04-22] MEDS: ACALABRUTINIB 100 MG PO SCH ×2 (00:33→13:58)
[2021-04-22] MEDS: *HR* Heparin 5,000 UNIT/ML VIAL SQ SCH (05:23)
[2021-04-22 07:07] LABS: Basophils % 0.4 %; Eosinophils # 0.2 K/mcL (0.0-0.6); Eosinophils % 2.2 %; Hematocrit 31.1 % (37.5-50.1); Hemoglobin 9.5 g/dL (12.9-16.9); Immature Granulocytes % 0.4 % (0-4); Mean Corpuscular HGB Conc 30.5 g/dL (31.6-35.5); Mean Corpuscular Hemoglobin 29.2 pg (28.0-33.3); Mean Corpuscular Volume 95.7 fL (83.0-100.0); Mean Platelet Volume 10.4 fL (9.4-12.4); Monocytes # 0.5 K/mcL (0.0-1.3); Monocytes % 6.3 %; Neutrophils # 5.5 K/mcL (1.6-8.9); Platelet Count 140 K/mcL (140-400); Red Blood Count 3.25 M/mcL (4.19-5.50); Red Cell Distribution Width 18.6 % (11.5-14.5); Segmented Neutrophils % 76.7 %; White Blood Count 7.2 K/mcL (4.3-11.1)
[2021-04-22 07:32] LABS: Calcium 8.4 mg/dL (8.6-10.3); Magnesium 1.6 mg/dL (1.6-2.6); Potassium 3.4 mEq/L (3.5-5.1)
[2021-04-22] MEDS: Gabapentin 300 MG CAPSULE PO SCH (08:16)
[2021-04-22] MEDS: Cholecalciferol (D-3) 1,000 UNIT (25MCG) TABLET PO SCH (08:16)
[2021-04-22] MEDS: Insulin LISPRO 300 UNITS/3 ML VIAL SUBQ SCH ×2 (08:16→13:57)
[2021-04-22] MEDS: Aspirin 81 MG TAB.CHEW PO SCH (08:16)
[2021-04-22] MEDS: allopurinoL 300 MG TABLET PO SCH (08:17)
[2021-04-22] MEDS: valACYclovir 500 MG TABLET PO SCH (08:18)
[2021-04-22] MEDS: Metoprolol XL (24 HR) Succ 25 MG TAB.ER.24H PO SCH (08:18)
[2021-04-22] MEDS: Cyanocobalamin (B-12) 1,000 MCG TABLET PO SCH (08:18)
[2021-04-22] MEDS: Piperacillin/Tazobactam 3.375 GM in 0.9 % Sodium Chloride Mini Bag 100 ML IVPB SCH (08:19)
[2021-04-22] MEDS: Nystatin POWDER 30 GM BOTTLE TP SCH (08:19)
[2021-04-22] MEDS: Lactobacillus 1 EACH CAP.SPRINK PO SCH (08:19)
[2021-04-22] MEDS: *HR* OxyCODONE Immed Rel 5 MG TABLET PO PRN (08:32)
[2021-04-22 08:43] VITALS: BP 112/76; PULSE 85; RESP 16; TEMP 97.9
[2021-04-22 08:54] VITALS: O2SAT 97
[2021-04-22] MEDS ORDERED: Fluconazole 100 MG TABLET PO SCH (09:00)
== END 2021-04-22 14:56 | disposition short-term general hospital (02) | DRG 603 ==
LOC: EMEROOPIK 14:21 → INPPIK 14:21
PROVIDERS: ADMIT Internal Medicine; ATTEND Internal Medicine

== ENCOUNTER 2021-05-03 13:29 | Inpatient (IN) ==
[2021-05-03 14:11] LABS: Basophils % 0.4 %; Eosinophils # 0.2 K/mcL (0.0-0.6); Eosinophils % 2.1 %; Hematocrit 27.1 % (37.5-50.1); Hemoglobin 8.1 g/dL (12.9-16.9); Immature Granulocytes % 0.7 % (0-4); Lymphocytes # 0.9 K/mcL (0.6-4.6); Lymphocytes % 8.4 %; Mean Corpuscular HGB Conc 29.9 g/dL (31.6-35.5); Mean Corpuscular Hemoglobin 30.8 pg (28.0-33.3); Mean Platelet Volume 10.4 fL (9.4-12.4); Monocytes # 0.5 K/mcL (0.0-1.3); Neutrophils # 8.4 K/mcL (1.6-8.9); Platelet Count 212 K/mcL (140-400); Red Blood Count 2.63 M/mcL (4.19-5.50); Red Cell Distribution Width 21.4 % (11.5-14.5); Segmented Neutrophils % 83.4 %; White Blood Count 10.1 K/mcL (4.3-11.1)
[2021-05-03 14:25] LABS: Bilirubin,Urine Negative (Negative); Blood,Urine Trace-lysed (Negative); Clarity,Urine Clear (Clear); Color,Urine Yellow (Yellow); Glucose,Urine (UA) Normal (Normal); Ketones,Urine Negative (Negative); Leukocyte Esterase,Urine Small (Negative); Nitrite,Urine Negative (Negative); Protein,Urine Negative (Neg-Trace); Urobilinogen,Urine Normal (Normal)
[2021-05-03 14:31] LABS: Alanine Aminotransferase 9 Units/L (7-52); Albumin 3.3 g/dL (3.5-5.7); Albumin/Globulin Ratio 1.3 (1.1-2.2); Alkaline Phosphatase 64 Units/L (34-104); Aspartate Amino Transferase 13 Units/L (13-39); BUN/Creatinine Ratio 26 (6-26); Bilirubin,Total 0.4 mg/dL (0.3-1.0); Blood Urea Nitrogen 30 mg/dL (8-23); Calcium 8.7 mg/dL (8.6-10.3); Carbon Dioxide 26 mEq/L (23-29); Chloride 99 mEq/L (98-107); Globulin 2.6 g/dL (2.4-3.5); Glucose 130 mg/dL (70-105); Osmolality,Calculated 290 (280-300); Potassium 3.6 mEq/L (3.5-5.1); Sodium 136 mEq/L (136-145); Total Protein 5.9 g/dL (6.4-8.9); eGFR For African Americans > 60 (> 60); eGFR For Non-African Americans > 60 (> 60)
[2021-05-03 14:33] LABS: RBC,Urine 0-3 per hpf (0-3); Squamous Epithelial Cell,Urine Few per hpf (None-Few)
[2021-05-03] MEDS ORDERED: Naloxone 0.4 MG/ML INJ IVP PRN (17:01)
[2021-05-03] MEDS ORDERED: Ondansetron ODT 4 MG TAB.RAPDIS SL PRN (17:01)
[2021-05-03] MEDS ORDERED: Famotidine 20 MG TABLET PO PRN (17:03)
[2021-05-03] MEDS ORDERED: D5% in Water 1,000 ML IVC PRN (17:09)
[2021-05-03] MEDS ORDERED: Dextrose Gel 15 GM/37.5 ML TUBE PO PRN ×2 (17:09)
[2021-05-03] MEDS ORDERED: *HR* Dextrose 50 % in Water (Syg) 50 ML SYRINGE IVP PRN (17:09)
[2021-05-03] MEDS ORDERED: Artificial Tears SOLN 15 ML BOTTLE BOTH EYES PRN (17:19)
[2021-05-03] MEDS: Metoprolol XL (24 HR) Succ 25 MG TAB.ER.24H PO SCH (19:10)
[2021-05-03] MEDS: *HR* Metformin 500 MG TABLET PO SCH (19:10)
[2021-05-03] MEDS: Furosemide 40 MG TABLET PO SCH (19:10)
[2021-05-03] MEDS: Gabapentin 300 MG CAPSULE PO SCH (20:33)
[2021-05-03] MEDS: Linezolid 600 MG TABLET PO SCH (20:33)
[2021-05-03] MEDS: Melatonin 3 MG TABLET PO SCH (20:33)
[2021-05-03] MEDS: Cholecalciferol (D-3) 1,000 UNIT (25MCG) TABLET PO SCH (20:33)
[2021-05-03] MEDS: [UNRECOGNIZED DRUG - OTHER] PO SCH (20:34)
[2021-05-03] MEDS: COPPER PO SCH (20:34)
[2021-05-03] MEDS: VITC PO SCH (20:34)
[2021-05-03] MEDS: valACYclovir 500 MG TABLET PO SCH (20:34)
[2021-05-03] MEDS: LUTEIN PO SCH (20:34)
[2021-05-03] MEDS: allopurinoL 100 MG TABLET PO SCH (20:34)
[2021-05-03] MEDS: Acetaminophen 325 MG TABLET PO PRN (20:46)
[2021-05-03] MEDS: *HR* OxyCODONE Immed Rel 5 MG TABLET PO PRN (20:47)
[2021-05-03] MEDS: Insulin LISPRO 300 UNITS/3 ML VIAL SUBQ SCH (21:09)
[2021-05-03] MEDS: Nystatin POWDER 30 GM BOTTLE TP SCH (21:10)
[2021-05-04 06:52] LABS: Basophils % 0.4 %; Eosinophils # 0.2 K/mcL (0.0-0.6); Eosinophils % 2.6 %; Hematocrit 25.5 % (37.5-50.1); Hemoglobin 7.5 g/dL (12.9-16.9); Immature Granulocytes % 0.5 % (0-4); Lymphocytes % 11.1 %; Mean Corpuscular HGB Conc 29.4 g/dL (31.6-35.5); Mean Corpuscular Hemoglobin 30.4 pg (28.0-33.3); Mean Corpuscular Volume 103.2 fL (83.0-100.0); Mean Platelet Volume 10.2 fL (9.4-12.4); Monocytes # 0.6 K/mcL (0.0-1.3); Neutrophils # 6.7 K/mcL (1.6-8.9); Platelet Count 200 K/mcL (140-400); Red Blood Count 2.47 M/mcL (4.19-5.50); Red Cell Distribution Width 21.6 % (11.5-14.5); Segmented Neutrophils % 78.4 %; White Blood Count 8.6 K/mcL (4.3-11.1)
[2021-05-04 07:31] LABS: BUN/Creatinine Ratio 23 (6-26); Blood Urea Nitrogen 30 mg/dL (8-23); Calcium 8.6 mg/dL (8.6-10.3); Carbon Dioxide 26 mEq/L (23-29); Chloride 98 mEq/L (98-107); Glucose 111 mg/dL (70-105); Magnesium 2.1 mg/dL (1.6-2.6); Osmolality,Calculated 287 (280-300); Potassium 3.6 mEq/L (3.5-5.1); Sodium 135 mEq/L (136-145); eGFR For African Americans > 60 (> 60); eGFR For Non-African Americans 55 (> 60)
[2021-05-04] MEDS: *HR* Metformin 500 MG TABLET PO SCH ×2 (07:53→17:33)
[2021-05-04] MEDS: valACYclovir 500 MG TABLET PO SCH ×2 (07:53→21:15)
[2021-05-04] MEDS: Cholecalciferol (D-3) 1,000 UNIT (25MCG) TABLET PO SCH ×2 (07:53→21:15)
[2021-05-04] MEDS: Furosemide 40 MG TABLET PO SCH ×2 (07:54→17:33)
[2021-05-04] MEDS: Linezolid 600 MG TABLET PO SCH ×2 (07:54→21:32)
[2021-05-04] MEDS: [UNRECOGNIZED DRUG - OTHER] PO SCH ×2 (07:55→21:17)
[2021-05-04] MEDS: COPPER PO SCH ×2 (07:55→21:17)
[2021-05-04] MEDS: VITC PO SCH ×2 (07:55→21:17)
[2021-05-04] MEDS: LUTEIN PO SCH ×2 (07:55→21:17)
[2021-05-04] MEDS: Insulin LISPRO 300 UNITS/3 ML VIAL SUBQ SCH ×4 (07:55→21:12)
[2021-05-04] MEDS: Metoprolol XL (24 HR) Succ 25 MG TAB.ER.24H PO SCH (07:56)
[2021-05-04] MEDS: Nystatin POWDER 30 GM BOTTLE TP SCH ×2 (07:58→21:16)
[2021-05-04] MEDS: Cyanocobalamin (B-12) 1,000 MCG TABLET PO SCH (08:03)
[2021-05-04] MEDS: Spironolactone 25 MG TABLET PO SCH (08:03)
[2021-05-04] MEDS: Multivit/Ca/Min/Fe/FA 1 TAB TABLET PO SCH (08:03)
[2021-05-04] MEDS: Aspirin 81 MG TAB.CHEW PO SCH (08:03)
[2021-05-04] MEDS: Gabapentin 300 MG CAPSULE PO SCH ×3 (08:04→21:15)
[2021-05-04] MEDS: allopurinoL 300 MG TABLET PO SCH (08:04)
[2021-05-04] MEDS: hydroCHLOROthiazide 25 MG TABLET PO SCH (08:04)
[2021-05-04] MEDS: *HR* OxyCODONE Immed Rel 5 MG TABLET PO PRN (17:37)
[2021-05-04] MEDS: Acetaminophen 325 MG TABLET PO PRN (17:37)
[2021-05-04] MEDS: Melatonin 3 MG TABLET PO SCH (21:14)
[2021-05-04] MEDS: allopurinoL 100 MG TABLET PO SCH (21:15)
[2021-05-05] MEDS: *HR* OxyCODONE Immed Rel 5 MG TABLET PO PRN ×2 (06:07→20:26)
[2021-05-05] MEDS: Acetaminophen 325 MG TABLET PO PRN ×2 (06:08→20:26)
[2021-05-05 06:17] LABS: Hematocrit 25.5 % (37.5-50.1); Hemoglobin 7.6 g/dL (12.9-16.9); Mean Corpuscular HGB Conc 29.8 g/dL (31.6-35.5); Mean Corpuscular Hemoglobin 31.1 pg (28.0-33.3); Mean Corpuscular Volume 104.5 fL (83.0-100.0); Mean Platelet Volume 10.2 fL (9.4-12.4); Platelet Count 181 K/mcL (140-400); Red Blood Count 2.44 M/mcL (4.19-5.50); Red Cell Distribution Width 21.3 % (11.5-14.5); White Blood Count 7.2 K/mcL (4.3-11.1)
[2021-05-05 07:04] LABS: BUN/Creatinine Ratio 23 (6-26); Blood Urea Nitrogen 31 mg/dL (8-23); Calcium 8.7 mg/dL (8.6-10.3); Carbon Dioxide 27 mEq/L (23-29); Chloride 98 mEq/L (98-107); Glucose 120 mg/dL (70-105); Osmolality,Calculated 290 (280-300); Potassium 3.9 mEq/L (3.5-5.1); Sodium 136 mEq/L (136-145); eGFR For African Americans > 60 (> 60); eGFR For Non-African Americans 53 (> 60)
[2021-05-05] MEDS: Insulin LISPRO 300 UNITS/3 ML VIAL SUBQ SCH ×4 (09:25→20:13)
[2021-05-05] MEDS: Cholecalciferol (D-3) 1,000 UNIT (25MCG) TABLET PO SCH ×2 (10:09→20:11)
[2021-05-05] MEDS: *HR* Metformin 500 MG TABLET PO SCH ×2 (10:09→17:23)
[2021-05-05] MEDS: Multivit/Ca/Min/Fe/FA 1 TAB TABLET PO SCH (10:09)
[2021-05-05] MEDS: Cyanocobalamin (B-12) 1,000 MCG TABLET PO SCH (10:10)
[2021-05-05] MEDS: allopurinoL 300 MG TABLET PO SCH (10:10)
[2021-05-05] MEDS: valACYclovir 500 MG TABLET PO SCH ×2 (10:10→20:12)
[2021-05-05] MEDS: Aspirin 81 MG TAB.CHEW PO SCH (10:10)
[2021-05-05] MEDS: Linezolid 600 MG TABLET PO SCH ×2 (10:11→20:12)
[2021-05-05] MEDS: Gabapentin 300 MG CAPSULE PO SCH ×3 (10:11→20:11)
[2021-05-05] MEDS: Metoprolol XL (24 HR) Succ 25 MG TAB.ER.24H PO SCH (10:11)
[2021-05-05] MEDS: hydroCHLOROthiazide 25 MG TABLET PO SCH (10:11)
[2021-05-05] MEDS: Furosemide 40 MG/4 ML VIAL IVP SCH ×2 (10:14→17:24)
[2021-05-05] MEDS: Spironolactone 25 MG TABLET PO SCH ×2 (10:14→10:21)
[2021-05-05] MEDS: Furosemide 40 MG TABLET PO SCH (10:14)
[2021-05-05] MEDS: LUTEIN PO SCH ×2 (10:21→20:13)
[2021-05-05] MEDS: VITC PO SCH ×2 (10:21→20:13)
[2021-05-05] MEDS: Nystatin POWDER 30 GM BOTTLE TP SCH ×2 (10:21→20:13)
[2021-05-05] MEDS: [UNRECOGNIZED DRUG - OTHER] PO SCH ×2 (10:21→20:13)
[2021-05-05] MEDS: COPPER PO SCH ×2 (10:21→20:13)
[2021-05-05] MEDS: Melatonin 3 MG TABLET PO SCH (20:12)
[2021-05-05] MEDS: allopurinoL 100 MG TABLET PO SCH (20:12)
[2021-05-06] MEDS: Furosemide 40 MG/4 ML VIAL IVP SCH ×2 (03:13→11:32)
[2021-05-06] MEDS: *HR* OxyCODONE Immed Rel 5 MG TABLET PO PRN (06:23)
[2021-05-06 06:28] LABS: Hematocrit 26.8 % (37.5-50.1); Hemoglobin 7.7 g/dL (12.9-16.9); Mean Corpuscular HGB Conc 28.7 g/dL (31.6-35.5); Mean Corpuscular Volume 104.3 fL (83.0-100.0); Mean Platelet Volume 10.1 fL (9.4-12.4); Platelet Count 198 K/mcL (140-400); Red Blood Count 2.57 M/mcL (4.19-5.50); Red Cell Distribution Width 21.2 % (11.5-14.5)
[2021-05-06 06:58] LABS: Albumin/Globulin Ratio 1.2 (1.1-2.2); Bilirubin,Total 0.3 mg/dL (0.3-1.0); Calcium 8.8 mg/dL (8.6-10.3); Globulin 2.6 g/dL (2.4-3.5); Potassium 4.4 mEq/L (3.5-5.1); Total Protein 5.6 g/dL (6.4-8.9)
[2021-05-06] MEDS: Insulin LISPRO 300 UNITS/3 ML VIAL SUBQ SCH ×2 (08:00→11:30)
[2021-05-06 08:08] VITALS: BP 105/67; PULSE 78; RESP 17; TEMP 98.1; O2SAT 98
[2021-05-06] MEDS: Cholecalciferol (D-3) 1,000 UNIT (25MCG) TABLET PO SCH (09:49)
[2021-05-06] MEDS: Linezolid 600 MG TABLET PO SCH (09:49)
[2021-05-06] MEDS: Aspirin 81 MG TAB.CHEW PO SCH (09:49)
[2021-05-06] MEDS: Multivit/Ca/Min/Fe/FA 1 TAB TABLET PO SCH (09:49)
[2021-05-06] MEDS: Metoprolol XL (24 HR) Succ 25 MG TAB.ER.24H PO SCH (09:49)
[2021-05-06] MEDS: Cyanocobalamin (B-12) 1,000 MCG TABLET PO SCH (09:49)
[2021-05-06] MEDS: hydroCHLOROthiazide 25 MG TABLET PO SCH (09:49)
[2021-05-06] MEDS: *HR* Metformin 500 MG TABLET PO SCH (09:50)
[2021-05-06] MEDS: allopurinoL 300 MG TABLET PO SCH (09:50)
[2021-05-06] MEDS: Spironolactone 25 MG TABLET PO SCH (09:50)
[2021-05-06] MEDS: valACYclovir 500 MG TABLET PO SCH (09:50)
[2021-05-06] MEDS: Gabapentin 300 MG CAPSULE PO SCH (09:50)
[2021-05-06] MEDS: Nystatin POWDER 30 GM BOTTLE TP SCH (09:52)
[2021-05-06] MEDS: COPPER PO SCH (09:52)
[2021-05-06] MEDS: LUTEIN PO SCH (09:52)
[2021-05-06] MEDS: [UNRECOGNIZED DRUG - OTHER] PO SCH (09:52)
[2021-05-06] MEDS: VITC PO SCH (09:52)
== END 2021-05-06 12:00 | DRG 639 ==
LOC: EMEROOPIK 13:29 → INPPIK 13:29
PROVIDERS: ADMIT Family Medicine; ATTEND Family Medicine